=== PATIENT | female | born 1985 | race Two or more races ===

== ENCOUNTER 2020-02-29 18:16 | Emergency (ER) | payer BC ==
[~2020-02-29] VITALS: Ht 152.4 cm; Wt 45.4 kg
[2020-02-29 18:23] VITALS: BP 112/68
--- NOTE | 2020-02-29 18:30 | NUR ---
PT SEEN AND EXAMINED BY SAULO GARCIA.
--- NOTE | 2020-02-29 18:55 | NUR ---
PT SIGNED WAIVER STATING SHE IS NOT .
--- NOTE | 2020-02-29 19:00 | NUR ---
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
--- NOTE | 2020-02-29 19:19 | NUR ---
Patient discharged to home in stable condition. Written and verbal after care instructions given. Patient verbalizes understanding of instruction.
== END 2020-02-29 19:21 | disposition home or self-care (01) ==
LOC: ER 18:21
DX: M77.31 Calcaneal spur, right foot (principal)
CPT/HCPCS: 73630-TC